=== PATIENT | female | born 1965 | race Caucasian/White ===

== ENCOUNTER 2019-10-13 09:46 | Emergency (ER) | payer BC ==
[~2019-10-13] VITALS: Ht 172.7 cm; Wt 128.4 kg
[2019-10-13 10:10] VITALS: Ht 172.7 cm; Wt 128.4 kg
[2019-10-13 11:47] LABS: BASOPHIL % 0.8 % (0-2); PLATELET COUNT 301 x10^3mcL (130-400); RED CELL DISTRIBUTION WIDTH 13.7 % (11.5-14.5)
[2019-10-13 12:12] LABS: CALCIUM 8.4 mg/dL (8.5-10.1); CARBON DIOXIDE 27.5 mmol/L (21-32); CHLORIDE SERUM 109 mmol/L (98-107); CREATININE SERUM 0.9 mg/dL (0.6-1.0); GFR1 > 60 mL/min; GLUCOSE SERUM 102 mg/dL (74-106); POTASSIUM SERUM 3.8 mmol/L (3.5-5.1); SODIUM SERUM 144 mmol/L (136-145)
[2019-10-13 12:18] LABS: ALBUMIN 3.7 g/dL (3.4-5.0); ALKALINE PHOSPHATASE 66 U/L (46-116); ALT/SGPT 36 U/L (14-59); AST/SGOT 23 U/L (15-37); BILIRUBIN TOTAL 0.5 mg/dL (0.20-1.00); TOTAL PROTEIN, SERUM 7.4 g/dL (6.4-8.2)
[2019-10-13 15:55] VITALS: BP 138/86
== END 2019-10-13 16:04 | disposition home or self-care (01) ==
LOC: ED 09:46
PROVIDERS: Emergency Medicine
DX: J06.9 Acute upper respiratory infection, unspecified (principal); H01.006 Unspecified blepharitis left eye, unspecified eyelid; H10.9 Unspecified conjunctivitis; Z98.51 Tubal ligation status; Z98.890 Other specified postprocedural states
CPT/HCPCS: 36415; 87804; J1100; Q0092

== ENCOUNTER 2019-12-28 05:44 | Emergency (ER) | payer BC ==
[~2019-12-28] VITALS: Ht 172.7 cm; Wt 131.5 kg
[2019-12-28 06:26] VITALS: BP 143/92
== END 2019-12-28 06:26 | disposition home or self-care (01) ==
LOC: ED 05:44
DX: G56.02 Carpal tunnel syndrome, left upper limb (principal); Z98.890 Other specified postprocedural states; Z98.51 Tubal ligation status